=== PATIENT | female | born 2000 | race Caucasian/White ===

== ENCOUNTER 2019-11-19 00:59 | Day surgery (SDC) | payer BC, SELFPAY ==
[2019-10-31 11:06] VITALS: BMI 20.7
[2019-11-13 13:31] VITALS: BMI 20.7
[2019-11-19] VITALS (9 sets, daily range): BP systolic 112–126; BP diastolic 63–80; PULSE 62–88; RESP 11–16; TEMP 36.6–37.4; O2SAT 99–100
--- NOTE | 2019-11-19 09:54 | WPDANESEPPF ---
Anes - Initial Pre Proc Eval Procedure: Operation Date: 11/06/19 12:45 Proposed Procedures p Diagnostic Laparoscopy - Sarwat Nicolas MD Operation Date: 11/19/19 11:00 Proposed Procedures p Diagnostic Laparoscopy - Sarwat Nicolas MD Date/Time: 11/19/19 09:54 Surgeon: Sarwat Nicolas MD Pre Op Diagnosis: Severe Pelvic Pain Patient Data Age: 18 Gender: F Height: 5 ft 1 in Weight: 49.9 kg Allergies Allergy/AdvReac Type Severity Reaction Status Date / Time cyclobenzaprine AdvReac Intermediate ANXIETY, Verified 11/13/19 13:30 ITCHING, SHORTNESS OF BREATH Home Medications Medication Instructions Recorded Confirmed Type albuterol sulfate 2 puff INHALATION Q6H PRN 10/31/19 11/13/19 History buspirone 10 mg PO TID 10/31/19 11/13/19 History norgestimate-ethinyl estradiol 1 tablet PO DAILY 10/31/19 11/13/19 History [Tri-Sprintec (28)] polyethylene glycol 3350 [Miralax] 17 g PO DAILY 10/31/19 11/13/19 History Patient hx anesthesia problems: none Family hx anesthesia problems: none [facility] Past Medical History Medical History Anxiety Panic attacks Anes - Eval Final PreProcedure Day of Procedure 11/19/19 09:54 Patient weight: normal Heart: regular rate and rhythm Lungs: clear to auscultation Airway: Mallampati scale class 1 Neurological: alert and oriented Last oral intake: >/= 8 hours ASA classification: II Emergent: no Anesthetic plan: proceed Anesthesia type and monitoring: general ETT and standard monitoring Other findings: mask induction iv start after asleep Informed Consent: The patient's anesthetic plan and its attendant risks and benefits were discussed with the patient/family/POA. Questions were solicited and answers provided to the satisfaction of the patient/family/POA.
[2019-11-19] MEDS: SCOPOLAMINE 1.5 MG PATCH TRANSDERM (10:25)
--- NOTE | 2019-11-19 11:40 | PM.IMHP ---
H&P: HPI History of Present Illness Chief complaint: Severe Pelvic Pain Narrative: 18 y/o G0 with longstanding pelvic pain, much worse during menses. Have tried an oral contraceptive, but pain is still worsening. 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 No history of STI. Meds Home Medications and Allergies Home Medications Medication Instructions Recorded Confirmed Type albuterol sulfate 2 puff INHALATION Q6H PRN 10/31/19 11/19/19 History buspirone 10 mg PO TID 10/31/19 11/19/19 History norgestimate-ethinyl estradiol 1 tablet PO DAILY 10/31/19 11/19/19 History [Tri-Sprintec (28)] polyethylene glycol 3350 [Miralax] 17 g PO DAILY 10/31/19 11/19/19 History Allergies Allergy/AdvReac Type Severity Reaction Status Date / Time cyclobenzaprine AdvReac Intermediate ANXIETY, Verified 11/19/19 10:11 ITCHING, SHORTNESS OF BREATH Vital Signs Vital Signs - 24 hr 11/19/19 09:16 Temperature 37.4 C Pulse Rate 69 Respiratory Rate 16 Blood Pressure 119/79 Pulse Oximetry 100 Exam Const: Orientation/consciousness: patient oriented x3 Other: Well-developed, well-nourished female in no acute distress. Neck: Thyroid: thyroid normal Lymphatic: no lymphadenopathy noted (in neck, axilla or inguinal nodes) Resp: Effort & Inspection: normal respiratory effort Auscultation: clear to auscultation bilaterally Cardio: Rate: regular rate Rhythm: regular rhythm Heart sounds: S1 normal heart sound present and S2 normal heart sound present GI: Other: ABD: Soft, nontender, nondistended. No guarding or rebound tenderness. No hepatosplenomegaly. : General: Yes no CVA tenderness Other: External genitalia: normal female hair distribution, without lesion. Urethral meatus: no lesion, non prolapsed. Bladder: no mass, nontender Vagina: well-estrogenized, without lesion or discharge. No cystocele or rectocele. Cervix: no lesion or discharge. Uterus: small, anteverted, freely mobile, nontender Adnexa: no mass or tenderness. Anus/perineum: no lesions, nontender Back/Spine/Pelvis: Back: no CVA tenderness Skin: General skin exam: normal color and no rashes or lesions noted Neuro: General: patient oriented x3 Extrem: Other: Extremities: nontender with no edema Psych: Mental Status: mental status grossly normal Affect: normal affect Assessment and Plan Assessment and plan (1) Pelvic pain: Code(s): R10.2 - Pelvic and perineal pain Status: Acute Assessment and Plan: Offered diagnostic laparosopy. She understands risks of surgery to include risks of anesthesia, risks of pain, infection, bleeding, blood products, thromboembolic phenomena and damage to adjacent structures such as bowel, bladder, ureters, blood vessels and nerves. She understands all these risks and elects to proceed with surgery.
[2019-11-19] MEDS: LACTATED RINGERS 1,000 ML 30 ML IV CONT (13:00)
--- NOTE | 2019-11-19 13:25 | PM.PROC ---
Procedure Note - Detailed Date of procedure: 11/19/19 Pre-op diagnosis: Severe Pelvic Pain Post-op diagnosis: same Procedure performed: Diagnostic laparoscopy Description of procedure: The patient was taken to the operating room where general endotracheal anesthesia was administered. She was prepared and draped in the usual sterile fashion in the dorsal lithotomy position. The bladder was drained with a red rubber catheter. A sterile speculum was inserted into the vagina and the anterior lip of the cervix was grasped with a single-toothed tenaculum. The acorn uterine manipulator was placed. The speculum was withdrawn. Gloves were changed and attention was turned to the abdomen. An infraumbilical skin incision was made with a scalpel. The abdomen was tented and a 5 millimeter bladeless trocar trocar was advanced under direct laparoscopic visualization. Pneumoperitoneum was administered using carbon dioxide gas. A survey of the pelvis and abdomen yielded the findings noted above. Hemostasis was excellent. The trocar was withdrawn and the gas was allowed to escape. The skin incision was reapproximated using 4-0 Vicryl in interrupted subcuticular fashion. Dermaflex was applied externally. The vaginal instrumentation was withdrawn and hemostasis was excellent here as well. Sponge, lap, needle and instrument counts were correct. The patient was awakened and taken to recovery in stable condition. I was present and scrubbed through the entire procedure. Implants: None Anesthesia: GETA Surgeon: Sarwat Nicolas MD Estimated blood loss (mL): 5 Drains: No Packing: No Pathology: none sent Complications: None Condition: stable Disposition: PACU Findings: Unremarkable pelvis. The RUQ anatomy was normal in appearance. The anterior and posterior cul de sac were unremarkable. The round ligaments, uterosacral ligaments, tubes and ovaries were normal in appearance bilaterally. The uterus was normal in appearance. The vermiform appendix was unable to be visualized.
== END 2019-11-19 16:05 | disposition home or self-care (01) ==
PROVIDERS: Visit Provider Obstetrics & Gynecology
PROC: (CPT 49320; principal; 2019-11-19 11:00)
DX: R10.2 Pelvic and perineal pain (principal); F41.0 Panic disorder [episodic paroxysmal anxiety]
CPT/HCPCS: 49320; A9270; J0131; J0330; J2250; J2405; J2704; J3010; J7030; J7120

== ENCOUNTER 2021-05-28 08:01 | Emergency (ER) | payer BC, SELFPAY ==
[2021-05-28 08:15] VITALS: BP 120/74; PULSE 72; RESP 16; TEMP 37.1; O2SAT 100
--- NOTE | 2021-05-28 08:38 | ED.URI ---
HPI - URI/Sore Throat General Chief Complaint: Upper Respiratory Infection Stated Complaint: Ear Pain/ Cold Symptom Time Seen by Provider: 05/28/21 08:21 Source: patient and RN notes reviewed Mode of arrival: ambulatory Limitations: no limitations History of Present Illness HPI Narrative: Patient presents today complaining of 5-day history of cough, rhinorrhea, congestion with bilateral ear pain that started yesterday, right greater than left. She currently rates her ear pain 2/10 and has been taking Mucinex and using Vicks VapoRub without relief. History of ear tubes in the past, but none currently. She has been vaccinated against COVID-19. MD elicited complaint: other ( ear pain) Related Data Home Medications Medication Instructions Recorded Confirmed buspirone 10 mg PO TID 10/31/19 05/28/21 L norgest/e.estradiol-e.estrad 1 tablet PO DAILY 05/28/21 05/28/21 [Ashlyna] dicyclomine 20 mg PO QID 05/28/21 05/28/21 fluoxetine 10 mg PO DAILY 05/28/21 05/28/21 pantoprazole 40 mg PO DAILY 05/28/21 05/28/21 Allergies Allergy/AdvReac Type Severity Reaction Status Date / Time cyclobenzaprine AdvReac Intermediate ANXIETY, Verified 05/28/21 08:29 ITCHING, SHORTNESS OF BREATH Review of Systems Review of Systems: CONSTITUTIONAL: Denies body aches, fever, chills, or sweats. EYES: Denies visual changes, redness, or discharge. ENT: Denies sore throat. + Ear pain, rhinorrhea, congestion CARDIOVASCULAR: Denies chest pain, palpitations, or edema. RESPIRATORY: Denies dyspnea.+ Cough GASTROINTESTINAL: Denies abdominal pain, nausea, vomiting, or diarrhea. GENITOURINARY: Denies dysuria or hematuria. SKIN: Denies rash, itching, or wounds. MUSCULOSKELETAL: Denies back pain, joint pain, or myalgia. NEUROLOGIC: Denies headache, numbness, tingling, or weakness. PSYCH: Denies depression or anxiety. [facility] Past Medical History Medical History (Updated 05/28/21 @ 08:42 by Petra Archer, [facility], ) Anxiety GERD (gastroesophageal reflux disease) IBS (irritable bowel syndrome) Panic attacks Surgical History Surgical History (Updated 05/28/21 @ 08:40 by Petra Archer, [facility], ) History of tympanostomy tube placement Comments At time of signature, I have reviewed and agree with nursing past medical, surgical, social and family history unless otherwise noted. Please see nursing chart for further information. There is no relevant family history pertinent to the presenting complaint Exam Narrative: GENERAL: Well-appearing, well-nourished, and in no acute distress. HEAD: Normocephalic, atraumatic. EYES: EOMI. No redness or drainage. Conjunctivae normal. ENT: Mucous membranes pink and moist. Nares clear. No rhinorrhea. TMs normal bilaterally. Throat normal. Uvula midline. NECK: Normal AROM. Supple. No lymphadenopathy. CHEST: No respiratory distress. Clear to auscultation. HEART: Regular rate and rhythm. No murmur appreciated. Normal peripheral pulses. EXTREMITIES: Normal range of motion. No edema. SKIN: Warm, dry, no rash. Capillary refill normal. Normal skin turgor. NEURO: No focal deficits. Alert and oriented x3. Gait steady. PSYCH: Normal affect. No signs of depression or anxiety. Course Vital Signs Vital signs: Vital Signs Temperature 98.7 F 05/28/21 08:15 Pulse Rate 72 05/28/21 08:15 Respiratory Rate 16 05/28/21 08:15 Blood Pressure 120/74 05/28/21 08:15 Pulse Oximetry 100 05/28/21 08:15 Temperature 98.7 F 05/28/21 08:15 Pulse Rate 72 05/28/21 08:15 Respiratory Rate 16 05/28/21 08:15 Blood Pressure 120/74 05/28/21 08:15 Pulse Oximetry 100 05/28/21 08:15 Reviewed MDM - URI/Sore Throat Differential Diagnosis Differential diagnosis: Likely upper respiratory infection, otitis media, viral infection and bronchitis Critical Care Time Critical Care Time Critical Care Time: No Discharge Plan Discharge Clinical Impression: Upper respiratory infection Q
== END 2021-05-28 08:45 | disposition home or self-care (01) ==
PROVIDERS: Emergency Provider Nurse Practitioner; PCP Family Medicine
DX: J06.9 Acute upper respiratory infection, unspecified (principal); K21.9 Gastro-esophageal reflux disease without esophagitis; F41.0 Panic disorder [episodic paroxysmal anxiety]
CPT/HCPCS: 99211; G0463

== ENCOUNTER 2023-01-10 14:59 | Emergency (ER) | payer OTHER, SELFPAY ==
--- NOTE | ~2023-01-10 | XR_ITS ---
EXAMINATION: XR abdomen/kub 1V DATE: 01/10/2023 16:10 INDICATION: Low back pain. TECHNIQUE: A supine view of the abdomen on 2 radiographs was obtained. COMPARISON: None. FINDINGS: There are no dilated loops of bowel. There is a large volume of stool in the colon. There i s no visible urolithiasis. IMPRESSION: 1. Large volume of stool in the colon. Reviewed, dictated and finalized at location L.
[2023-01-10 15:05] VITALS: BP 129/76; PULSE 93; RESP 20; TEMP 37.1; O2SAT 100
--- NOTE | 2023-01-10 15:49 | ED.GENADULT ---
HPI - General Adult General Chief complaint: Back Pain/Injury Stated complaint: lower back pain Source: patient Mode of arrival: ambulatory Limitations: no limitations History of Present Illness HPI narrative: Patient presents for evaluation of left lower back pain. Symptom onset this morning, upon waking for the day. Pain is constant, sharp, 9/10 in severity. No radicular component. No paresthesias. She denies any abdominal pain, urinary symptoms, vaginal bleeding or discharge. LMP last week. She tried taking ibuprofen 600mg for her pain, which did not help. 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 She reports pulling a muscle in the right side of her back recently. She is wondering if her current pain is compensatory as a result of favoring that side. Related Data Home Medications Medication Instructions Recorded Confirmed buspirone 10 mg tablet 10 mg PO TID 10/31/19 05/28/21 L norgest/E estradiol-E estrad 1 tablet PO DAILY 05/28/21 05/28/21 0.15 mg-30 mcg (84)/10 mcg(7) tabs,3mos (Ashlyna) dicyclomine 20 mg tablet 20 mg PO QID 05/28/21 05/28/21 fluoxetine 10 mg capsule 10 mg PO DAILY 05/28/21 05/28/21 pantoprazole 40 mg tablet,delayed 40 mg PO DAILY 05/28/21 05/28/21 release ciprofloxacin HCl 500 mg tablet mg 01/10/23 citalopram 20 mg tablet mg 01/10/23 estradiol 1 mg tablet mg 01/10/23 fluticasone 250 mcg-salmeterol 50 inhalation 01/10/23 mcg/dose blistr powdr for inhalation (Advair Diskus) lamotrigine 100 mg tablet mg 01/10/23 lorazepam 0.5 mg tablet mg 01/10/23 Allergies Allergy/AdvReac Type Severity Reaction Status Date / Time cyclobenzaprine AdvReac Intermediate ANXIETY, Verified 05/28/21 08:29 ITCHING, SHORTNESS OF BREATH Review of Systems Review of Systems: CONSTITUTIONAL: Denies fever, chills, or sweats. EYES: Denies visual changes, redness, or discharge. ENT: Denies rhinorrhea, congestion, sore throat, or otalgia. CARDIOVASCULAR: Denies chest pain, palpitations, or edema. RESPIRATORY: Denies cough or dyspnea. GASTROINTESTINAL: Denies abdominal pain, nausea, vomiting, or diarrhea. GENITOURINARY: Denies dysuria or hematuria. SKIN: Denies rash or itching. MUSCULOSKELETAL: Reports left lower back pain. NEUROLOGIC: Denies headache, numbness, dizziness, or weakness. PSYCHIATRIC: Denies anxiety or depression. 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 EYES: PERRLA and EOMI. ENT: Nares clear, no rhinorrhea or epistaxis. Mucous membranes moist. Oropharynx without tonsillar hypertrophy exudate or other lesions. Bilateral TMs pearly velarde nonbulging NECK: Supple. No adenopathy or masses. No carotid bruits or JVD CHEST: Clear to auscultation. No respiratory distress. No wheezes rales or rhonchi HEART: Regular rate and rhythm. No murmur heard. Normal peripheral pulses. ABDOMEN: Soft, nontender, nondistended, normal active bowel sounds. BACK: No tenderness in midline or paraspinous muscles bilaterally of lumbar spine. Mild left sided CVA tenderness.
== END 2023-01-10 16:39 | disposition home or self-care (01) ==
PROVIDERS: Emergency Provider Nurse Practitioner; PCP Family Medicine
DX: R31.29 Other microscopic hematuria (principal); M54.50 Low back pain, unspecified; K21.9 Gastro-esophageal reflux disease without esophagitis; F41.9 Anxiety disorder, unspecified; F41.0 Panic disorder [episodic paroxysmal anxiety]
CPT/HCPCS: 74018; 81003; 99213; G0463

== ENCOUNTER 2024-03-09 11:36 | Outpatient (CLI) | payer BC, SELFPAY ==
--- NOTE | ~2024-03-09 | US_ITS ---
EXAMINATION: US thyroid DATE: 03/09/2024 11:50 INDICATION: Abnormal thyroid function. TECHNIQUE: Multiple ultrasound images of the thyroid were obtained. COMPARISON: None. FINDINGS: The right thyroid lobe measures 4.5 x 1.4 x 1.1 cm. The left thyroid lobe measures 4.5 x 1.3 x 1.4 c m. The thyroid is diffusely heterogeneous. Vascularity is normal. IMPRESSION: 1. Heterogeneous thyroid, which may be seen with chronic lymphocytic (Yany's) thyroiditis or Gra ves' disease. Reviewed, dictated and finalized at location E. IMPRESSION: 1. Heterogeneous thyroid, which may be seen with chronic lymphocytic (Yany 's) thyroiditis or Graves' disease.
== END 2024-03-09 11:37 ==
DX: E03.9 Hypothyroidism, unspecified (principal)
CPT/HCPCS: 76536